=== PATIENT | female | born 1990 | race Caucasian/White ===

== ENCOUNTER 2017-10-16 17:10 | Inpatient (IN) ==
[2017-10-16] MEDS ORDERED: BUTORPHANOL 2 MG/ML VIAL IV PRN (19:09)
[2017-10-16] MEDS ORDERED: MEPERIDINE 50 MG/1 ML VIAL IV PRN (19:09)
[2017-10-16] MEDS ORDERED: ONDANSETRON 4 MG/2 ML VIAL IV PRN ×2 (19:09→20:13)
[2017-10-16] MEDS ORDERED: CITRIC ACID/SODIUM CITRATE 30 ML UDCUP PO ONE (19:12)
[2017-10-16] MEDS ORDERED: AMPICILLIN INJ 2,000 MG in SODIUM CHLORIDE 0.9% 100 ML IV ONE (19:12)
[2017-10-16] MEDS ORDERED: FAMOTIDINE 20 MG/2 ML VIAL IV ONE (19:12)
[2017-10-16] MEDS ORDERED: SODIUM CHLORIDE 0.9% 100 ML IV ONE (19:14)
[2017-10-16] MEDS ORDERED: AMPICILLIN 2,000 MG VIAL ONE (19:14)
[2017-10-16] MEDS: LACTATED RINGERS 1,000 ML IV SCH ×2 (19:18→22:35)
[2017-10-16] MEDS ORDERED: LIDOCAINE 1% 50 ML VIAL ONE (19:26)
[2017-10-16] MEDS ORDERED: miSOPROStol 200 MCG TABLET ONE (19:27)
[2017-10-16] MEDS ORDERED: fentaNYL 2 MCG/ROPIV 0.2% EPID 150 ML EPIDURAL SCH (19:30)
[2017-10-16] MEDS ORDERED: OXYTOCIN/LR 20 UNIT/1,000 ML BAG IV SCH (19:30)
[2017-10-16 19:46] LABS: Basophils % 0.1 % (0.0-0.8); Eosinophils # 0.1 10*3/uL (0.0-0.87); Eosinophils % 0.6 % (0.00-10.9); Hematocrit 36.9 VOL% (35.7-47.0); Hemoglobin 12.8 GM/DL (12.0-16.0); Immature Granulocytes % 0.3 %; Immature Granulocytes Absolute 0.03 #; Lymphocytes # 3.3 10*3/uL (1.4-4.0); Lymphocytes % 30.2 % (21.3-54.2); Mean Corpuscular HGB Conc 34.7 GM/DL (32-36); Mean Corpuscular Hemoglobin 31 PG (27-34); Mean Corpuscular Volume 87.9 FL (87-102); Mean Platelet Volume 13.2 FL (9.6-12.0); Monocytes # 0.7 10*3/uL (0.11-0.8); Monocytes % 6.5 % (1.7-12.7); Neutrophils # 6.7 10*3/uL (1.4-7.4); Neutrophils % 62.3 % (38.7-73.9); Platelet Count 135 T/CUMM (130-400); Red Cell Distribution Width 13.4 % (9.3-17.3); White Blood Count 10.8 T/CUMM (4-12)
[2017-10-16 20:10] LABS: Albumin 2.8 G/DL (3.4-5.0); Bilirubin,Total 0.7 MG/DL (0.2-1.0); Calcium 8.8 MG/DL (8.5-10.1); Osmolality,Calculated 279.1 MOS/KG (273-304); Potassium 2.9 MMOL/L (3.5-5.1); Total Protein 6.6 G/DL (6.4-8.3)
[2017-10-16] MEDS ORDERED: WITCH HAZEL PADS 100/JAR TOP PRN (20:13)
[2017-10-16] MEDS ORDERED: oxyCODONE/ACETAMINOPHEN 5-325 MG TABLET PO PRN ×2 (20:13)
[2017-10-16] MEDS ORDERED: HYDROCORTISONE 2.5% RECTAL CREAM 30 GM TUBE TOP PRN (20:13)
[2017-10-16] MEDS ORDERED: BISACODYL 10 MG SUPP RECTAL PRN (20:13)
[2017-10-16] MEDS ORDERED: BENZOCAINE 20%/MENTHOL 0.5% SPRAY 56 GM CAN TOP PRN (20:13)
[2017-10-16] MEDS ORDERED: RHO(D) IMMUNE GLOBULIN 300 MCG SYRINGE IM ONE (20:13)
[2017-10-16] MEDS ORDERED: DIPH/TET/ACEL PERT BOOSTER VACCINE 0.5 ML VIAL IM ONE (20:13)
[2017-10-16] MEDS ORDERED: ACETAMINOPHEN 325 MG TABLET PO PRN (20:13)
[2017-10-16] MEDS ORDERED: OXYTOCIN/LR 20 UNIT/1,000 ML BAG IV ONE (20:13)
[2017-10-16] MEDS ORDERED: LANOLIN 50% CREAM 0.3 OZ TUBE TOP PRN (20:13)
[2017-10-16] MEDS ORDERED: MEASLES/MUMPS/RUBELLA VACCINE 0.5 ML VIAL SUBCUT ONE (20:13)
[2017-10-16] MEDS ORDERED: BUTORPHANOL 1 MG/ML VIAL ONE (20:53)
[2017-10-17] MEDS ORDERED: NITROFURANTOIN PO SCH (00:18)
[2017-10-17] MEDS ORDERED: [UNRECOGNIZED DRUG - OTHER] PO SCH (00:18)
[2017-10-17] MEDS ORDERED: POTASSIUM CHLORIDE 10 MEQ TABLET PO SCH ×2 (00:19→00:41)
[2017-10-17] MEDS: DOCUSATE SODIUM 100 MG CAPSULE PO SCH ×3 (00:30→21:39)
[2017-10-17] MEDS: POTASSIUM CHLORIDE 10 MEQ TABLET PO SCH ×2 (01:10→10:00)
[2017-10-17 01:39] LABS: Basophils % 0.1 % (0.0-0.8); Eosinophils % 0.2 % (0.00-10.9); Hematocrit 36.3 VOL% (35.7-47.0); Hemoglobin 12.6 GM/DL (12.0-16.0); Immature Granulocytes % 0.3 %; Immature Granulocytes Absolute 0.04 #; Lymphocytes % 14.9 % (21.3-54.2); Mean Corpuscular HGB Conc 34.7 GM/DL (32-36); Mean Corpuscular Hemoglobin 31 PG (27-34); Mean Corpuscular Volume 88.8 FL (87-102); Mean Platelet Volume 12.9 FL (9.6-12.0); Monocytes # 0.9 10*3/uL (0.11-0.8); Monocytes % 6.7 % (1.7-12.7); Neutrophils # 10.3 10*3/uL (1.4-7.4); Neutrophils % 77.8 % (38.7-73.9); Platelet Count 114 T/CUMM (130-400); Red Blood Count 4.09 MC/CUMM (3.8-5.5); Red Cell Distribution Width 13.6 % (9.3-17.3); White Blood Count 13.3 T/CUMM (4-12)
[2017-10-17] MEDS: IBUPROFEN 800 MG TABLET PO PRN ×2 (02:23→21:40)
[2017-10-17] MEDS ORDERED: IRON FUM PO SCH (09:00)
[2017-10-17] MEDS ORDERED: [UNRECOGNIZED DRUG - OTHER] PO SCH (09:00)
[2017-10-17] MEDS ORDERED: PRENATAL VITS PO SCH (09:00)
[2017-10-18 07:07] VITALS: BP 129/77
[2017-10-18] MEDS: DOCUSATE SODIUM 100 MG CAPSULE PO SCH (09:34)
[2017-10-18] MEDS: POTASSIUM CHLORIDE 10 MEQ TABLET PO SCH (09:35)
== END 2017-10-18 12:20 | disposition home or self-care (01) | DRG 775 ==
LOC: N.LDOUT 17:10 → N.LD 17:13 → N.OB 23:50
PROVIDERS: ADMIT Obstetrics & Gynecology; ATTEND Obstetrics & Gynecology